=== PATIENT | male | born 1935 | race Caucasian/White ===

== ENCOUNTER 2019-04-03 19:54 | Emergency (ER) | payer MEDICARE, BC ==
--- NOTE | 2019-04-03 21:03 | EDM.PDOC ---
ED HPI GENERAL MEDICAL PROBLEM - General Chief Complaint: General Stated Complaint: FALL Time Seen by Provider: 04/03/19 20:10 Source of Information: Reports: Patient History Limitations: Reports: No Limitations - History of Present Illness INITIAL COMMENTS - FREE TEXT/NARRATIVE: Pt. presents to ER with complaints of chest pain post fall. [place]. [place]. He states that he doesn't believe he hit his head. He denies any head pain. No neck discomfort. No abdominal or pelvic pain. He fell from a standing height. Pt. states that the chest pain is reproducible. Denies any shortness of breath. No nausea or vomiting. Onset: Today Location: Reports: Chest Left Upper Chest Pain Score (Numeric/FACES): 1 - Related Data Allergies Allergy/AdvReac Type Severity Reaction Status Date / Time amoxicillin Allergy Diarrhea Verified 04/03/19 20:17 Home Meds: Home Meds Aspirin [Ecotrin EC] 81 mg PO DAILY 04/03/19 [History] Cholecalciferol (Vitamin D3) [Vitamin D] 5,000 unit PO ASDIRECTED 04/03/19 [ History] Donepezil HCl 1 tab PO BEDTIME 04/03/19 [History] Memantine HCl [Namenda Xr] 28 mg PO DAILY 04/03/19 [History] [place]-3/DHA/Epa/Fish Oil [[place] 3 500 Softgel] 1 each PO ASDIRECTED 04/03/19 [ History] Omeprazole 1 tab PO ASDIRECTED 04/03/19 [History] Sertraline HCl 1 tab PO BEDTIME 04/03/19 [History] Tadalafil [Cialis] 10 - 20 mg PO ASDIRECTED PRN 04/03/19 [History] Ubidecarenone [Co Q10] 60 mg PO ASDIRECTED 04/03/19 [History] atorvaSTATin [Lipitor] 40 mg PO BEDTIME 04/03/19 [History] buPROPion [Wellbutrin SR] 1 tab PO DAILY 04/03/19 [History] Past Medical History Cardiovascular History: Reports: CAD, High Cholesterol, Hypertension, [place] Respiratory History: Reports: Sleep Apnea, Other (See Below) Other Respiratory History: chronic vasomotor rhinitis Gastrointestinal History: Reports: Colon Polyp, GERD Genitourinary History: Reports: Other (See Below) Other Genitourinary History: ED Musculoskeletal History: Reports: Arthritis Psychiatric History: Reports: Depression Social & Family History - Tobacco Use Smoking Status *Q: Never Smoker ED ROS GENERAL - Review of Systems Review Of Systems: See Below Constitutional: Reports: No Symptoms HEENT: Reports: No Symptoms Respiratory: Reports: Pleuritic Chest Pain. Denies: Shortness of Breath, Wheezing, Cough Cardiovascular: Reports: Chest Pain. Denies: Lightheadedness Endocrine: Reports: No Symptoms GI/Abdominal: Reports: No Symptoms : Reports: No Symptoms Musculoskeletal: Reports: No Symptoms Skin: Reports: No Symptoms Neurological: Reports: No Symptoms Psychiatric: Reports: No Symptoms Hematologic/Lymphatic: Reports: No Symptoms Immunologic: Reports: No Symptoms ED EXAM, GENERAL - Physical Exam Exam: See Below Exam Limited By: No Limitations General Appearance: Alert, WD/WN, No Apparent Distress Head: Atraumatic, Normocephalic Neck: Normal Inspection, Supple, Non-Tender, Full Range of Motion Respiratory/Chest: No Respiratory Distress, Lungs Clear, Normal Breath Sounds, No Accessory Muscle Use, Other (L anterior chest pain, no crepitus or deformity noted.) Cardiovascular: Normal Peripheral Pulses, Regular Rate, Rhythm, No Edema, No Gallop, No JVD, No Murmur, No Rub GI/Abdominal: Normal Bowel Sounds, Soft, Non-Tender, No Organomegaly, No Distention, No Abnormal Bruit, No Mass (Male) Exam: Deferred Rectal (Males) Exam: Deferred Back Exam: Normal Inspection, Full Range of Motion Extremities: Normal Inspection, Normal Range of Motion, Non-Tender, No Pedal Edema, Normal Capillary Refill Neurological: Alert, Oriented, CN II-XII Intact, Normal Cognition, Normal Gait, Normal Reflexes, No Motor/Sensory Deficits Psychiatric: Normal Affect, Normal Mood Skin Exam: Warm, Dry, Intact, Normal Color, No Rash Lymphatic: No Adenopathy Course - Vital Signs Last Recorded V/S: Last Vital Signs Temp 36.2 C 04/03/19 20:07 Pulse 64 04/03/19 20:07 Resp 18 04/03/19 20:07 BP 132/80 04/03/19 20:07 Pulse Ox 95 04/03/19 20:07 - Orders/Labs/Meds Orders: Active Orders 24 hr Category Date Time Status Chest 2V [CR] Stat Exams 10/15/19 20:14 Taken - Radiology Interpretation Free Text/Narrative:: chest x-ray negative for acute pathology Departure - Departure Time of Disposition: 21:05 Disposition: Home, Self-Care 01 Clinical Impression: Chest wall contusion - Discharge Information Instructions: Chest Contusion, Adult, [id number] Referrals: Hank Yu PA-C [Primary Care Provider] - Forms: ED Department Discharge Additional Instructions: Home to rest. Recheck in clinic in 7-10 days Return to ER if worsening discomfort, increased shortness of breath, or lightheadedness. - My Orders Last 24 Hours: My Active Orders 04/03/19 20:14 Chest 2V [CR] Stat - Assessment/Plan Last 24 Hours: My Active Orders 04/03/19 20:14 Chest 2V [CR] Stat Plan: Home to rest. Recheck in clinic in 7-10 days Return to ER if worsening discomfort, increased shortness of breath, or lightheadedness.
--- NOTE | 2019-04-04 08:05 | CR ---
[id number] RAD/RAD Chest PA And Lateral EXAM: FRONTAL AND LATERAL CHEST INDICATION: Fall with left anterior chest pain. COMPARISON: None. DISCUSSION: Mild subsegmental atelectasis in the lung bases. The lungs are otherwise clear. Normal heart size. Prior sternotomy. Mild age-indeterminate upper thoracic compression fracture. A right fourth rib fracture appears likely chronic. IMPRESSION: 1. No acute cardiopulmonary findings. Armond Cruz MD 04/04/19 0804 Thank you for allowing us to participate in the care of your patient.
== END 2019-04-03 21:05 | disposition home or self-care (01) ==
LOC: VM.ED 19:54
DX: S20.212A Contusion of left front wall of thorax, initial encounter (principal); I25.2 Old myocardial infarction; I25.10 Atherosclerotic heart disease of native coronary artery without angina pectoris; I10 Essential (primary) hypertension; E78.00 Pure hypercholesterolemia, unspecified; F32.9 Major depressive disorder, single episode, unspecified; K21.9 Gastro-esophageal reflux disease without esophagitis; Z79.82 Long term (current) use of aspirin; Z79.899 Other long term (current) drug therapy; Z88.0 Allergy status to penicillin; W19.XXXA Unspecified fall, initial encounter; Y93.01 Activity, walking, marching and hiking; Y92.89 Other specified places as the place of occurrence of the external cause
CPT/HCPCS: 71046; 99283-25; 99284-GF

== ENCOUNTER 2020-05-13 18:39 | Emergency (ER) | payer MEDICARE, BC ==
[2020-05-13] MEDS ORDERED: Sodium Chloride 0.9% 10 ML Syringe FLUSH PRN (18:48)
--- NOTE | 2020-05-13 19:05 | EDM.PDOC ---
ED HPI GENERAL MEDICAL PROBLEM - General Chief Complaint: General Time Seen by Provider: 05/13/20 19:05 Source of Information: Reports: EMS - History of Present Illness INITIAL COMMENTS - FREE TEXT/NARRATIVE: Mihir is an 84 y/o male who is brought to the ER by EMS after the staff at [facility] called this patient had an episode of shaking while he was sitting at the table bout 4 pm. He then was noted to have a fever of 100.3. He has a history of dementia and was diagnosed with COVID on 05/07/2020. Apparently about 6 pm his called the nurse and thought he was having a "seizure", but no seziure activity witnessed by RN or EMS. - Related Data Allergies Allergy/AdvReac Type Severity Reaction Status Date / Time amoxicillin Allergy Diarrhea Verified 05/13/20 19:16 Home Meds: Home Meds Aspirin [Ecotrin EC] 81 mg PO DAILY 04/03/19 [History] Donepezil HCl 10 mg PO BEDTIME 04/03/19 [History] Memantine HCl [Namenda Xr] 28 mg PO DAILY 04/03/19 [History] Omeprazole 20 mg PO ASDIRECTED 04/03/19 [History] Sertraline HCl 50 tab PO BEDTIME 04/03/19 [History] atorvaSTATin [Lipitor] 40 mg PO BEDTIME 04/03/19 [History] Acetaminophen 325 mg PO Q4H PRN 05/13/20 [History] Albuterol Sulfate [Albuterol Sulfate Hfa] 2 inh IH ASDIRECTED 30 Days #18 hfa.[email or web address] 05/13/20 [Rx] Cholecalciferol (Vitamin D3) [Vitamin D3] 2,000 unit PO DAILY 05/13/20 [History] Docusate Sodium/Sennosides [Senna Plus] 1 tab PO BID 05/13/20 [History] Furosemide [Lasix] 20 mg PO DAILY 05/13/20 [History] QUEtiapine [SEROquel] 50 mg PO DAILY 05/13/20 [History] amLODIPine [Norvasc] 2.5 mg PO DAILY 05/13/20 [History] Past Medical History Cardiovascular History: Reports: CAD, High Cholesterol, Hypertension, [place] Respiratory History: Reports: Sleep Apnea, Other (See Below) Other Respiratory History: chronic vasomotor rhinitis Gastrointestinal History: Reports: Colon Polyp, GERD Genitourinary History: Reports: Other (See Below) Other Genitourinary History: ED Musculoskeletal History: Reports: Arthritis Psychiatric History: Reports: Depression Review of Systems - Review of Systems Review Of Systems: Unable To Obtain Reason Not Obtained: Due to patient condition ED EXAM, GENERAL - Physical Exam Exam: See Below General Appearance: Alert, WD/WN (Elderly male.), No Apparent Distress, Other (Does not offer any response to questions.) Eye Exam: Bilateral Eye: PERRL Ears: Normal External Exam, Normal Canal, Normal TMs Nose: Normal Inspection, Normal Mucosa Throat/Mouth: No Airway Compromise, Other (Tongue slightly dry) Head: Atraumatic, Normocephalic Neck: Supple Respiratory/Chest: No Respiratory Distress, Decreased Breath Sounds Cardiovascular: Regular Rate, Rhythm GI/Abdominal: Normal Bowel Sounds, Soft (Male) Exam: Deferred Rectal (Males) Exam: Deferred Back Exam: Normal Inspection Extremities: Normal Inspection, Normal Capillary Refill Neurological: Alert (Does not offer any response, but eyes open) Skin Exam: Warm, Dry, Intact, Normal Color Lymphatic: No Adenopathy Course - Vital Signs Text/Narrative:: 1904 The patient was seen by the [facility] [employer] [facility]. Labs, EKG, and CXR ordered. 2030 D-Dimer elevated at 0.096, CTA ordered to exclude clot. Vitals stable, patient afebrile and BP WNL. IV bolus done infusing. 2219 CTA reviwed. No PE noted. Vitals have been stable here in the ER. Patient has been afebrile and sats in lower 90s on room air. Called patient's and discussed with her the results. Will plan to discharge him back to [facility]. He has viral pneumonia presentation, but labs and vitals are stable. Will start him on an Albuterol inhaler with a spacer. Discharge instructions were given and he left the ER in stable condition with assisted living staff. Last Recorded V/S: Last Vital Signs Temp 36.5 C 05/13/20 20:22 Pulse 62 05/13/20 20:46 Resp 16 05/13/20 20:46 BP 122/65 05/13/20 20:46 Pulse Ox 92 L 05/13/20 20:46 - Orders/Labs/Meds Orders: Active Orders 24 hr Category Date Time Status CULTURE BLOOD [BC] Stat Lab 05/13/20 19:17 Results CULTURE BLOOD [BC] Stat Lab 05/13/20 19:21 Received Blood Culture x2 Reflex Set [OM.PC] Stat Oth 05/13/20 18:48 Ordered Saline Lock Insert [OM.PC] Stat Oth 05/13/20 18:48 Ordered Labs: Laboratory Tests 05/13/20 05/13/20 05/13/20 Range/Units 18:48 19:17 19:17 WBC 3.1 L (4.0-10.0) x10^3/uL RBC 3.46 L (4.5-6.0) x10^6/uL Hgb 12.0 L (14.0-18.0) g/dL Hct 35.6 L (40.0-52.0) % MCV 102.9 H (78.0-93.0) fL MCH 34.7 H (26.0-32.0) pg MCHC 33.7 (32.0-36.0) g/dL RDW Coeff of [place] 12.1 (10.0-15.0) % Plt Count 83 L (130-400) x10^3/uL Neut % (Auto) 70.5 (50.0-80.0) % Lymph % (Auto) 16.4 L (25.0-50.0) % Branch % (Auto) 13.1 H (2.0-11.0) % Eos % (Auto) 0.0 (0.0-4.0) % Baso % (Auto) 0.0 L (0.2-1.2) % PT 11.9 (9.5-12.3) SEC INR 1.1 L (2.0-3.5) APTT 32.5 (25.6-32.8) SEC D-Dimer, Quantitative 0.96 H (<=0.58) mg/LFEU Sodium (136-145) mmol/L Potassium (3.5-5.1) mmol/L Chloride (98-107) mmol/L Carbon Dioxide (21-32) mmol/L Anion Gap (10-20) mmol/L BUN (7-18) mg/dL Creatinine (0.70-1.30) mg/dL Est Cr Clr Drug Dosing Estimated GFR (MDRD) Glucose (74-106) mg/dL Lactic Acid (0.4-2.0) mmol/L Calcium (8.5-10.1) mg/dL Corrected Calcium (8.5-10.1) mg/dL Magnesium (1.8-2.4) mg/dL Ferritin (26-388) ng/mL Total Bilirubin (0.2-1.0) mg/dL AST (15-37) U/L ALT (16-63) U/L Alkaline Phosphatase (46-116) U/L Troponin I (<=0.056) ng/mL Total Protein (6.4-8.2) g/dL Albumin (3.4-5.0) g/dL Globulin Albumin/Globulin Ratio Urine Color Yellow (YELLOW) Urine Appearance Clear (CLEAR) Urine pH 6.0 (5.0-8.0) Ur Specific [place] 1.020 Urine Protein Negative (NEGATIVE) mg/dL Urine Glucose (UA) Negative (NEGATIVE) mg/dL Urine Ketones Negative (NEGATIVE) mg/dL Urine Occult Blood Negative (NEGATIVE) Urine Nitrite Negative (NEGATIVE) Urine Bilirubin Negative (NEGATIVE) Urine Urobilinogen 0.2 (0.2) EU/dL Ur Leukocyte Esterase Negative (NEGATIVE) 05/13/20 05/13/20 05/13/20 Range/Units 19:17 19:17 19:17 WBC (4.0-10.0) x10^3/uL RBC (4.5-6.0) x10^6/uL Hgb (14.0-18.0) g/dL Hct (40.0-52.0) % MCV (78.0-93.0) fL MCH (26.0-32.0) pg MCHC (32.0-36.0) g/dL RDW Coeff of [place] (10.0-15.0) % Plt Count (130-400) x10^3/uL Neut % (Auto) (50.0-80.0) % Lymph % (Auto) (25.0-50.0) % Branch % (Auto) (2.0-11.0) % Eos % (Auto) (0.0-4.0) % Baso % (Auto) (0.2-1.2) % PT (9.5-12.3) SEC INR (2.0-3.5) APTT (25.6-32.8) SEC D-Dimer, Quantitative (<=0.58) mg/LFEU Sodium 140 (136-145) mmol/L Potassium 3.8 (3.5-5.1) mmol/L Chloride 105 (98-107) mmol/L Carbon Dioxide 27 (21-32) mmol/L Anion Gap 11.8 (10-20) mmol/L BUN 24 H (7-18) mg/dL Creatinine 1.4 H (0.70-1.30) mg/dL Est Cr Clr Drug Dosing TNP Estimated GFR (MDRD) 48 Glucose 111 H (74-106) mg/dL Lactic Acid 1.4 (0.4-2.0) mmol/L Calcium 7.6 L (8.5-10.1) mg/dL Corrected Calcium 8.32 L (8.5-10.1) mg/dL Magnesium 1.7 L (1.8-2.4) mg/dL Ferritin 402 H (26-388) ng/mL Total Bilirubin 0.6 (0.2-1.0) mg/dL AST 36 (15-37) U/L ALT 22 (16-63) U/L Alkaline Phosphatase 83 (46-116) U/L Troponin I 0.035 (<=0.056) ng/mL Total Protein 6.6 (6.4-8.2) g/dL Albumin 3.1 L (3.4-5.0) g/dL Globulin 3.5 Albumin/Globulin Ratio 0.89 Urine Color (YELLOW) Urine Appearance (CLEAR) Urine pH (5.0-8.0) Ur Specific [place] Urine Protein (NEGATIVE) mg/dL Urine Glucose (UA) (NEGATIVE) mg/dL Urine Ketones (NEGATIVE) mg/dL Urine Occult Blood (NEGATIVE) Urine Nitrite (NEGATIVE) Urine Bilirubin (NEGATIVE) Urine Urobilinogen (0.2) EU/dL Ur Leukocyte Esterase (NEGATIVE) Meds: Medications Discontinued Medications Generic Name Dose Route Start Last Admin Trade Name Freq PRN Reason Stop Dose Admin Sodium Chloride 1,000 mls @ 999 mls/hr 05/13/20 19:19 05/13/20 18:45 Normal Saline IV 05/13/20 20:19 999 mls/hr ONETIME ONE Administration Iopamidol 100 ml 05/13/20 23:38 05/13/20 23:38 Isovue-300 (61%) IVPUSH 05/13/20 23:39 100 ml ONETIME ONE Administration Sodium Chloride 10 ml 05/13/20 18:48 Saline Flush FLUSH ASDIRECTED PRN Keep Vein Open - Radiology Interpretation Free Text/Narrative:: XR Chest 1V=early lower lobe infiltrates CTA=no pulmonary embolus, bilateral consolidations Departure - Departure Time of Disposition: 22:25 Disposition: Home, W Home Health Agency 06 Condition: Good Clinical Impression: Viral pneumonia, COVID-19, Dehydration - Discharge Information Prescriptions: Albuterol Sulfate [Albuterol Sulfate Hfa] 2 inh IH ASDIRECTED 30 Days #18 hfa.aer.ad Instructions: COVID-19 Frequently Asked Questions, COVID-19, Dehydration, Elderly, [id number] Referrals: Hank Yu PA-C [Primary Care Provider] - Forms: ED Department Discharge Additional Instructions: -Push fluids. Patient was given a liter of Normal Saline here in the ER. -Labs were normal. -Vitals were stable here in the ER and patient could maintain his oxygen levels on room air. -Albuterol HFA inhaler 2 puffs every 4 hours while awake. #18gm. (Rx) -Continue your chronic meds as prescribed -Follow up with your primary provider if you have further concerns or return to the ER. - My Orders Last 24 Hours: My Active Orders 05/13/20 18:48 Blood Culture x2 Reflex Set [OM.PC] Stat Saline Lock Insert [OM.PC] Stat 05/13/20 19:17 CULTURE BLOOD [BC] Stat 05/13/20 19:21 CULTURE BLOOD [BC] Stat - Assessment/Plan Last 24 Hours: My Active Orders 05/13/20 18:48 Blood Culture x2 Reflex Set [OM.PC] Stat Saline Lock Insert [OM.PC] Stat 05/13/20 19:17 CULTURE BLOOD [BC] Stat 05/13/20 19:21 CULTURE BLOOD [BC] Stat Assessment:: 1)COVID+ 2)Viral Pneumonia 3)Dehydration Plan: -Return to Assisted Living center -Albuterol HFA inhaler Rx -Resume home meds
[2020-05-13] MEDS ORDERED: Sodium Chloride 0.9% 1,000 ML IV ONE (19:19)
--- NOTE | 2020-05-13 19:47 | CR ---
[id number] RAD/RAD Chest Portable EXAM: PORTABLE CHEST RADIOGRAPH. INDICATION: VIRAL INFECTION HYPOXEMIA FEVER COMPARISON: CORRELATION IS MADE WITH APRIL 03, 2019 FINDINGS: Early infiltrates are seen at both lung bases The cardiac silhouette is stable IMPRESSION: EARLY BIBASILAR PNEUMONIA Ryan Bocanegra MD 05/13/20 1946 Thank you for allowing us to participate in the care of your patient.
[2020-05-13 20:06] LABS: CHLORIDE,CL 105 mmol/L (98-107); SODIUM,NA 140 mmol/L (136-145)
[2020-05-13 20:08] LABS: PTT,PARTIAL THROMBOPLSTIN TIME 32.5 SEC (25.6-32.8)
[2020-05-13 20:15] LABS: ANION GAP 11.8 mmol/L (10-20)
[2020-05-13] MEDS ORDERED: Iopamidol 612 MG/ML 100 ML Bottle IVPUSH ONE (23:38)
--- NOTE | 2020-05-14 07:57 | CT ---
[id number] CT/CTA Chest Exam: CTA Chest Clinical Data: VIRAL INFECTION POSITIVE D-DIMER COMPARISON: CORRELATION IS MADE WITH TODAY'S CHEST RADIOGRAPH FINDINGS: Bilateral infiltrates are seen. There are no pulmonary emboli There is no mediastinal mass or adenopathy IMPRESSION: BILATERAL PNEUMONIA NO PULMONARY EMBOLI Ryan Bocanegra MD 05/14/20 0756 Thank you for allowing us to participate in the care of your patient.
== END 2020-05-13 23:15 | disposition home health service (06) ==
LOC: VM.ED 18:39
DX: U07.1 COVID-19 (principal); J12.89 Other viral pneumonia; E86.0 Dehydration; I10 Essential (primary) hypertension; E78.00 Pure hypercholesterolemia, unspecified; I25.10 Atherosclerotic heart disease of native coronary artery without angina pectoris; I25.2 Old myocardial infarction; M19.90 Unspecified osteoarthritis, unspecified site; F32.9 Major depressive disorder, single episode, unspecified; Z79.82 Long term (current) use of aspirin; Z79.899 Other long term (current) drug therapy; Z88.1 Allergy status to other antibiotic agents
CPT/HCPCS: 36415; 71045; 71275; 80053; 81003; 82728; 83605; 83735; 84484; 85025; 85379; 85610; 85730; 87040; 93005; 99284; 99285; J7030; Q9967

== ENCOUNTER 2020-05-20 09:52 | Inpatient (IN) | payer MEDICARE, BC ==
[2020-05-20] MEDS ORDERED: Lactated Ringers 1,000 ML IV SCH (10:00)
[2020-05-20] MEDS ORDERED: Albuterol/Ipratropium 3.0-0.5 MG/3 ML Neb Soln NEB ONE (10:05)
--- NOTE | 2020-05-20 10:15 | EDM.PDOC ---
ED HPI GENERAL MEDICAL PROBLEM - General Chief Complaint: General Stated Complaint: ER Time Seen by Provider: 05/20/20 10:00 Source of Information: Reports: Patient, EMS, EMS Notes Reviewed, Care Home Records (Assisted living), RN, RN Notes Reviewed History Limitations: Reports: Physical Impairment (severe weakness) - History of Present Illness INITIAL COMMENTS - FREE TEXT/NARRATIVE: Patient is a 84 year old male from local Assisted Living facility. Patient presents with c/o severe weakness, dehydration, and Covid pneumonia. Patient tested positive for COVID on 05/07/20. Assisted Living states he is off quarantine today, also reports he is a DNR. Assisted living reports the patient was ambulating with assist yesterday, today has difficulty sitting up with assist. Patient denies any pain. Denies N/V/D. Admits to SOB. Denies chest pains. Patient is A&O x3, although slow to respond. Onset: Gradual - Related Data Allergies Allergy/AdvReac Type Severity Reaction Status Date / Time amoxicillin Allergy Diarrhea Verified 05/20/20 10:03 Home Meds: Home Meds Aspirin [Ecotrin EC] 81 mg PO DAILY 04/03/19 [History] Donepezil HCl 10 mg PO BEDTIME 04/03/19 [History] Memantine HCl [Namenda Xr] 28 mg PO DAILY 04/03/19 [History] Omeprazole 20 mg PO ASDIRECTED 04/03/19 [History] Sertraline HCl 50 tab PO BEDTIME 04/03/19 [History] atorvaSTATin [Lipitor] 40 mg PO BEDTIME 04/03/19 [History] Acetaminophen 325 mg PO Q4H PRN 05/13/20 [History] Albuterol Sulfate [Albuterol Sulfate Hfa] 2 inh IH ASDIRECTED 30 Days #18 [email or web address] 05/13/20 [Rx] Cholecalciferol (Vitamin D3) [Vitamin D3] 2,000 unit PO DAILY 05/13/20 [History] Docusate Sodium/Sennosides [Senna Plus] 1 tab PO BID 05/13/20 [History] Furosemide [Lasix] 20 mg PO DAILY 05/13/20 [History] QUEtiapine [SEROquel] 50 mg PO DAILY 05/13/20 [History] amLODIPine [Norvasc] 2.5 mg PO DAILY 05/13/20 [History] Past Medical History Cardiovascular History: Reports: CAD, High Cholesterol, Hypertension, AR Respiratory History: Reports: Sleep Apnea, Other (See Below) Other Respiratory History: chronic vasomotor rhinitis Gastrointestinal History: Reports: Colon Polyp, GERD Genitourinary History: Reports: Other (See Below) Other Genitourinary History: ED Musculoskeletal History: Reports: Arthritis Psychiatric History: Reports: Depression ED ROS GENERAL - Review of Systems Review Of Systems: Comprehensive ROS is negative, except as noted in HPI. ED EXAM, GENERAL - Physical Exam Exam: See Below Exam Limited By: No Limitations General Appearance: Alert, WD/WN, Mild Distress Eye Exam: Bilateral Eye: EOMI, Normal Inspection Ears: Normal External Exam, Hearing Grossly Normal Nose: Normal Inspection Throat/Mouth: Normal Inspection, Normal Lips, Normal Teeth, Normal Gums, Normal Oropharynx, Normal Voice, No Airway Compromise Head: Atraumatic, Normocephalic Neck: Normal Inspection Respiratory/Chest: Respiratory Distress, Decreased Breath Sounds, Crackles (throughour), Rhonchi, Wheezing Cardiovascular: Normal Peripheral Pulses, Regular Rate, Rhythm, No Edema, No Gallop, No JVD, No Murmur, No Rub Peripheral Pulses: 2+: Radial (L), Radial (R), Dorsalis Pedis (L), Dorsalis Pedis (R) GI/Abdominal: Normal Bowel Sounds, Soft, Non-Tender (Male) Exam: Deferred Rectal (Males) Exam: Deferred Back Exam: Normal Inspection, Decreased Range of Motion Extremities: Normal Inspection, Normal Range of Motion, Non-Tender, Normal Capillary Refill, No Pedal Edema Neurological: Alert, Oriented, CN II-XII Intact, Normal Cognition, No Motor/Sensory Deficits, Slow to Respond Psychiatric: Normal Affect, Normal Mood Skin Exam: Warm, Dry, Intact, Normal Color, No Rash Lymphatic: No Adenopathy Course - Vital Signs Last Recorded V/S: Last Vital Signs Temp 98.7 F 05/20/20 10:56 Pulse 78 05/20/20 10:56 Resp 28 H 05/20/20 10:56 BP 130/99 H 05/20/20 10:56 Pulse Ox 94 L 05/20/20 10:56 - Orders/Labs/Meds Orders: Active Orders 24 hr Category Date Time Status Admission Diagnosis [ADT] Stat ADT 05/20/20 11:31 Ordered Patient Status [ADT] Routine ADT 05/20/20 11:31 Active EKG Documentation Completion [RC] STAT Care 05/20/20 09:55 Active Oxygen Therapy, ED [RC] ASDIRECTED Care 05/20/20 11:33 Active RT Aerosol Therapy [RC] ASDIRECTED Care 05/20/20 10:05 Active Regular Diet [DIET] Diet 05/20/20 Dinner Ordered CULTURE BLOOD [BC] Stat Lab 05/20/20 10:22 Received CULTURE BLOOD [BC] Stat Lab 05/20/20 10:28 Received Lactated Ringers [Ringers, Lactated] 1,000 ml Med 05/20/20 10:00 Active IV ASDIRECTED Blood Culture x2 Reflex Set [OM.PC] Stat Oth 05/20/20 09:56 Ordered Medication Orders Lactated Ringer's (Ringers, Lactated) 1,000 mls @ 125 mls/hr IV ASDIRECTED IBAN Last Admin: 05/20/20 10:10 Dose: 125 mls/hr Documented by: CURT Labs: Laboratory Tests 05/20/20 05/20/20 05/20/20 Range/Units 10:22 10:28 10:28 WBC 4.7 (4.0-10.0) x10^3/uL RBC 3.52 L (4.5-6.0) x10^6/uL Hgb 12.1 L (14.0-18.0) g/dL Hct 35.2 L (40.0-52.0) % MCV 100.0 H (78.0-93.0) fL MCH 34.4 H (26.0-32.0) pg MCHC 34.4 (32.0-36.0) g/dL RDW Coeff of [place] 11.5 (10.0-15.0) % Plt Count 160 D (130-400) x10^3/uL Add Manual Diff Yes Neutrophils % (Manual) 89 H (50-80) % Lymphocytes % (Manual) 6 L (25-50) % Monocytes % (Manual) 5 (2-11) % Platelet Estimate Adequate Giant Platelets Few H PT 15.4 H (9.5-12.3) SEC INR 1.4 L (2.0-3.5) Sodium 141 (136-145) mmol/L Potassium 3.6 (3.5-5.1) mmol/L Chloride 105 (98-107) mmol/L Carbon Dioxide 26 (21-32) mmol/L Anion Gap 13.6 (10-20) mmol/L BUN 26 H (7-18) mg/dL Creatinine 1.0 (0.70-1.30) mg/dL Est Cr Clr Drug Dosing TNP Estimated GFR (MDRD) > 60 Glucose 103 (74-106) mg/dL Lactic Acid (0.4-2.0) mmol/L Calcium 8.5 (8.5-10.1) mg/dL Corrected Calcium 9.78 (8.5-10.1) mg/dL Total Bilirubin 1.1 H (0.2-1.0) mg/dL AST 56 H (15-37) U/L ALT 26 (16-63) U/L Alkaline Phosphatase 82 (46-116) U/L Troponin I 0.031 (<=0.056) ng/mL C-Reactive Protein 20.1 H (<=0.9) mg/dL NT-Pro-B Natriuret Pep (<=450) pg/mL Total Protein 7.0 (6.4-8.2) g/dL Albumin 2.4 L (3.4-5.0) g/dL Globulin 4.6 Albumin/Globulin Ratio 0.52 Urine Color (YELLOW) Urine Appearance (CLEAR) Urine pH (5.0-8.0) Ur Specific [place] Urine Protein (NEGATIVE) mg/dL Urine Glucose (UA) (NEGATIVE) mg/dL Urine Ketones (NEGATIVE) mg/dL Urine Occult Blood (NEGATIVE) Urine Nitrite (NEGATIVE) Urine Bilirubin (NEGATIVE) Urine Urobilinogen (0.2) EU/dL Ur Leukocyte Esterase (NEGATIVE) Urine RBC (NOT SEEN) /HPF Urine WBC (NOT SEEN) /HPF Ur Squamous Epith Cells (NEGATIVE) /HPF Amorphous Sediment Urine Bacteria (NEGATIVE) /HPF Urine Mucus (NEGATIVE) /LPF 05/20/20 05/20/20 05/20/20 Range/Units 10:28 10:28 10:37 WBC (4.0-10.0) x10^3/uL RBC (4.5-6.0) x10^6/uL Hgb (14.0-18.0) g/dL Hct (40.0-52.0) % MCV (78.0-93.0) fL MCH (26.0-32.0) pg MCHC (32.0-36.0) g/dL RDW Coeff of [place] (10.0-15.0) % Plt Count (130-400) x10^3/uL Add Manual Diff Neutrophils % (Manual) (50-80) % Lymphocytes % (Manual) (25-50) % Monocytes % (Manual) (2-11) % Platelet Estimate Giant Platelets PT (9.5-12.3) SEC INR (2.0-3.5) Sodium (136-145) mmol/L Potassium (3.5-5.1) mmol/L Chloride (98-107) mmol/L Carbon Dioxide (21-32) mmol/L Anion Gap (10-20) mmol/L BUN (7-18) mg/dL Creatinine (0.70-1.30) mg/dL Est Cr Clr Drug Dosing Estimated GFR (MDRD) Glucose (74-106) mg/dL Lactic Acid 1.7 (0.4-2.0) mmol/L Calcium (8.5-10.1) mg/dL Corrected Calcium (8.5-10.1) mg/dL Total Bilirubin (0.2-1.0) mg/dL AST (15-37) U/L ALT (16-63) U/L Alkaline Phosphatase (46-116) U/L Troponin I (<=0.056) ng/mL C-Reactive Protein (<=0.9) mg/dL NT-Pro-B Natriuret Pep 547 H (<=450) pg/mL Total Protein (6.4-8.2) g/dL Albumin (3.4-5.0) g/dL Globulin Albumin/Globulin Ratio Urine Color Dark yellow H (YELLOW) Urine Appearance Cloudy H (CLEAR) Urine pH 6.0 (5.0-8.0) Ur Specific [place] 1.020 Urine Protein 100 H (NEGATIVE) mg/dL Urine Glucose (UA) Negative (NEGATIVE) mg/dL Urine Ketones Trace H (NEGATIVE) mg/dL Urine Occult Blood Moderate H (NEGATIVE) Urine Nitrite Negative (NEGATIVE) Urine Bilirubin Small H (NEGATIVE) Urine Urobilinogen 0.2 (0.2) EU/dL Ur Leukocyte Esterase Negative (NEGATIVE) Urine RBC 10-20 H (NOT SEEN) /HPF Urine WBC 0-5 (NOT SEEN) /HPF Ur Squamous Epith Cells Not seen (NEGATIVE) /HPF Amorphous Sediment Few Urine Bacteria Many H (NEGATIVE) /HPF Urine Mucus Rare H (NEGATIVE) /LPF Meds: Medications Generic Name Dose Route Start Last Admin Trade Name Freq PRN Reason Stop Dose Admin Lactated Ringer's 1,000 mls @ 125 mls/hr 05/20/20 10:00 05/20/20 10:10 Ringers, Lactated IV 125 mls/hr ASDIRECTED IBAN Administration Discontinued Medications Generic Name Dose Route Start Last Admin Trade Name Freq PRN Reason Stop Dose Admin Albuterol/Ipratropium 3 ml 05/20/20 10:05 05/20/20 10:18 Duoneb 3.0-0.5 Mg/3 Ml NEB 05/20/20 10:06 3 ml ONETIME ONE Administration Ceftriaxone Sodium 1 gm 05/20/20 11:30 05/20/20 11:37 Rocephin IVPUSH 05/20/20 11:31 1 gm STAT ONE Administration Dexamethasone 6 mg 05/20/20 11:29 05/20/20 11:43 Decadron IVPUSH 05/20/20 11:30 6 mg ONETIME ONE Administration - Radiology Interpretation Free Text/Narrative:: Chest xray: Progression of parenchymal opacities compared to the prior examination. Findings are most consistent with pneumonia, including sequela of COVID 19. See rad report - Re-Assessments/Exams Free Text/Narrative Re-Assessment/Exam: 05/20/20 11:49 Discussed patient case with Dr. Shi Villafana who agreed to accept the patient for acute admission. Departure - Departure Time of Disposition: 11:50 Disposition: Admitted As Inpatient 65 Condition: Poor Clinical Impression: Hypoxia, Weakness, COVID-19 Pneumonia Qualifiers: Pneumonia type: due to unspecified organism Laterality: bilateral Lung location: lower lobe of lung Qualified Code(s): J18.9 - Pneumonia, unspecified organism Dementia Qualifiers: Dementia type: Alzheimer's disease Alzheimer's disease onset: unspecified onset Dementia behavioral disturbance: without behavioral disturbance Qualified C ode(s): G30.9 - Alzheimer's disease, unspecified; F02.80 - Dementia in other diseases classified elsewhere without behavioral disturbance - Discharge Information *PRESCRIPTION DRUG MONITORING PROGRAM REVIEWED*: No *COPY OF PRESCRIPTION DRUG MONITORING REPORT IN PATIENT YESI: No Forms: ED Department Discharge Sepsis Event Note (ED) - Evaluation Sepsis Screening Result: No Definite Risk - Focused Exam Vital Signs: Vital Signs Temp Pulse Resp BP Pulse Ox 05/20/20 10:56 98.7 F 78 28 H 130/99 H 94 L 05/20/20 09:53 98.5 F 75 20 129/76 92 L - My Orders Last 24 Hours: My Active Orders 05/20/20 09:55 EKG Documentation Completion [RC] STAT 05/20/20 09:56 Blood Culture x2 Reflex Set [OM.PC] Stat 05/20/20 10:00 Lactated Ringers [Ringers, Lactated] 1,000 ml IV ASDIRECTED 05/20/20 10:05 RT Aerosol Therapy [RC] ASDIRECTED 05/20/20 10:22 CULTURE BLOOD [BC] Stat 05/20/20 10:28 CULTURE BLOOD [BC] Stat 05/20/20 11:31 Admission Diagnosis [ADT] Stat Patient Status [ADT] Routine 05/20/20 11:33 Oxygen Therapy, ED [RC] ASDIRECTED 05/20/20 Dinner Regular Diet [DIET] - Assessment/Plan Last 24 Hours: My Active Orders 05/20/20 09:55 EKG Documentation Completion [RC] STAT 05/20/20 09:56 Blood Culture x2 Reflex Set [OM.PC] Stat 05/20/20 10:00 Lactated Ringers [Ringers, Lactated] 1,000 ml IV ASDIRECTED 05/20/20 10:05 RT Aerosol Therapy [RC] ASDIRECTED 05/20/20 10:22 CULTURE BLOOD [BC] Stat 05/20/20 10:28 CULTURE BLOOD [BC] Stat 05/20/20 11:31 Admission Diagnosis [ADT] Stat Patient Status [ADT] Routine 05/20/20 11:33 Oxygen Therapy, ED [RC] ASDIRECTED 05/20/20 Dinner Regular Diet [DIET]
[2020-05-20 11:07] LABS: ANION GAP 13.6 mmol/L (10-20); CHLORIDE,CL 105 mmol/L (98-107); SODIUM,NA 141 mmol/L (136-145)
[2020-05-20] MEDS ORDERED: Dexamethasone 4 MG/ML SDV IVPUSH ONE (11:29)
[2020-05-20] MEDS ORDERED: cefTRIAXone 1 GM Vial IVPUSH ONE (11:30)
--- NOTE | 2020-05-20 11:41 | CR ---
[id number] RAD/RAD Chest PA or AP 1V EXAM: RAD Chest PA or AP 1V INDICATION: CHEST PAIN. COMPARISON: CT and radiograph examinations from 05/13/2020. DISCUSSION: Increased parenchymal opacification in both lungs compared to the prior examination. Findings are more prominent on the right extending into the upper lobe. No pleural effusion or pneumothorax. IMPRESSION: Progression of parenchymal opacities compared the prior examination. Findings are most consistent with pneumonia, including sequela of COVID 19. Kadeem Cruz MD 05/20/20 1141 Thank you for allowing us to participate in the care of your patient.
[2020-05-20] MEDS ORDERED: Azithromycin 250 MG Tab PO ONE (13:13)
[2020-05-20] MEDS ORDERED: Acetaminophen 325 MG Tab PO PRN (13:13)
[2020-05-20] MEDS ORDERED: Albuterol 0.083% 2.5 MG/3 ML Neb Soln NEB PRN (13:13)
[2020-05-20] MEDS ORDERED: Albuterol HFA 18 Gm Inhaler INH PRN (13:52)
[2020-05-20] MEDS: Zinc (Zinc Gluconate) 50 MG Tab PO SCH (14:21)
[2020-05-20] MEDS: Ascorbic Acid 500 MG Tab PO SCH ×2 (14:21→19:48)
[2020-05-20] MEDS: Azithromycin 500 MG in Sodium Chloride 0.9% 250 ML IV SCH (14:49)
[2020-05-20] MEDS: Albuterol HFA 18 Gm Inhaler INH SCH ×3 (14:52→22:21)
--- NOTE | 2020-05-20 18:56 | HP ---
CHIEF COMPLAINT: Weakness and shortness of breath. HISTORY OF PRESENT ILLNESS: This is an 84-year-old with dementia, sent over from assisted living after being COVID positive on the . He was having weakness requiring assistance with ambulation yesterday. Now, they can hardly get him up out of the chair. He was 80% on room air. In the ER, respiratory rate 30s. He is not keeping on oxygen. He is currently not having any fevers. White count was normal, but 89% neutrophils. Chest x-ray shows a pattern potentially of a secondary pneumonia. The patient had been in the ER on the and been evaluated. Had a CT PE protocol at that time. He was 88% on 2 L, was not started on dexamethasone. The patient does not have a history of chronic lung disease. ALLERGIES: Include amoxicillin, causes diarrhea. MEDICATION LIST: Reviewed. The patient previously was on Lasix for a time when in the custodial, but it was stopped. He is on Zoloft 50 mg daily, Lipitor 40 mg at bedtime, Namenda 28 mg daily, Aricept 10 mg at bedtime, amlodipine 2.5 daily, Seroquel 50 mg at bedtime, B12, 1000 mcg daily, Xanax as needed for anxiety, Prilosec daily, aspirin 81 mg daily, coenzyme Q10, and vitamin D daily. PAST MEDICAL HISTORY: Does include the coronary artery disease, depression, erectile dysfunction, essential hypertension, GERD, history of colon polyps, history of skin cancer, mixed dementia with Alzheimer's and vascular , in [facility] placement in 11/2019. He was discharged from the [facility] to live with his at assisted living this fall, hyperlipidemia, and sleep apnea. SURGICAL HISTORY: Includes CABG surgery, biopsy of thyroid. FAMILY HISTORY: Both parents are . His mother had dementia. Father had oral cancer. SOCIAL HISTORY: He is . He lives with his at [facility]. He never smoked. He does not use any alcohol currently. REVIEW OF SYSTEMS: Unobtainable due to the patient's mental cognitive status. However, it should be noted his weight was 72 kg back in February and is reported to be 72 kg today. PHYSICAL EXAMINATION: Vital Signs: Weight 72.5 kg, temperature 98, pulse 68, blood pressure 139/80, respiratory rate 22, and O2 of 92% on 4 L, but 80% on room air. General: He is in no acute distress. He is resting in bed. He did open his eyes and answer questions. When asked where he is from, he said here, but then he did tell me [place]. He also did know that it was May and it was Tuesday or Tuesday. He denied he is in any pain or having any trouble breathing. He did not cough when I was in the room with him. Heart: Regular rate and rhythm. S1, S2 without murmur. Lungs: Sounds are clear to auscultation over the left lung, but decreased lung sounds and crackles over the right lung. Abdomen: Has positive bowel sounds. It is soft, nondistended, nontender. Extremities: Warm and dry. No edema. Mental Status: Again, as stated in HPI that he is aware of the date. He otherwise is not pale. Skin: Warm. LABORATORY WORK: White count 4.7, hemoglobin 12.1, platelets 160, up from 83 on the . INR up to 1.4. D-dimer was not repeated today. Sodium 141, potassium 3.6, chloride 105, bicarb 26, BUN 26, creatinine 1, lactic 1.7, glucose 103, calcium 9.7, bilirubin 1.1, AST 56, ALT 26. Troponin negative. CRP 20.1. ProBNP 547, albumin 2.4. UA, 10-20 rbc's. ASSESSMENT: 1. Coronavirus disease 19 infection, 05/07, but worsening respiratory status. We will start him on dexamethasone 6 mg IV daily and turn it over to oral if he can take that tomorrow. He also likely has a secondary pneumonia, so we started him on intravenous Rocephin and intravenous Zithromax. 2. Dementia, known Alzheimer's and vascular. We will continue his home medications. We will continue to encourage cares. 3. Weakness and deconditioning related to coronavirus disease 19 and pneumonia. We will get PT involved. 4. Community-acquired pneumonia secondary to infection due to coronavirus disease 19. 5. Essential hypertension. We will continue his home medications. 6. Mild anemia. We will continue to monitor. 7. History of coronary artery disease. He is not having any chest pain. PLAN: The patient will continue acute cares with IV steroids, IV antibiotics. We will get PT involved. We will follow his lab work. We will start the vitamins for COVID. Code level 3. MKA: 05/20/2020 17:54:31 MODL: 05/20/2020 18:47:45 /[id number]
[2020-05-20] MEDS ORDERED: Flumazenil 0.1 MG/ML 5 ML MDV IVPUSH PRN (19:33)
[2020-05-20] MEDS: QUEtiapine 25 MG Tab PO SCH (19:47)
[2020-05-20] MEDS: atorvaSTATin 40 MG Tab PO SCH (19:48)
[2020-05-20] MEDS: Donepezil 10 MG Tab PO SCH (19:48)
[2020-05-21] MEDS: Albuterol HFA 18 Gm Inhaler INH SCH ×6 (03:58→22:29)
[2020-05-21 07:44] LABS: CHLORIDE,CL 107 mmol/L (98-107); SODIUM,NA 143 mmol/L (136-145)
[2020-05-21] MEDS ORDERED: Azithromycin 250 MG Tab PO SCH (08:00)
[2020-05-21] MEDS: Enoxaparin 40 MG/0.4 ML Syringe SUBCUT SCH (08:01)
[2020-05-21] MEDS: cefTRIAXone 1 GM Vial IVPUSH SCH (08:01)
[2020-05-21] MEDS: Cholecalciferol (Vitamin D3) 25 MCG Tab PO SCH (08:01)
[2020-05-21] MEDS: Memantine 10 MG Tab PO SCH ×2 (08:02→19:55)
[2020-05-21] MEDS: Ascorbic Acid 500 MG Tab PO SCH ×2 (08:02→19:54)
[2020-05-21] MEDS: Sertraline 50 MG Tab PO SCH (08:02)
[2020-05-21] MEDS: Zinc (Zinc Gluconate) 50 MG Tab PO SCH (08:03)
[2020-05-21] MEDS: amLODIPine 2.5 MG Tab PO SCH (08:03)
[2020-05-21] MEDS: Aspirin 81 MG Tab.EC PO SCH (08:04)
[2020-05-21] MEDS: dexAMETHasone 2 MG, dexAMETHasone 4 MG PO SCH ×2 (08:04)
[2020-05-21] MEDS: Azithromycin 500 MG in Sodium Chloride 0.9% 250 ML IV SCH (08:09)
[2020-05-21] MEDS: LORazepam 2 MG/ML SDV IVPUSH PRN (17:15)
--- NOTE | 2020-05-21 18:31 | PN ---
Progress Note for CLAYTON Blankenship LINDA Date: 05/21/2020 Room #: VM.210 SUBJECTIVE: This is hospital day #2 on an 84-year-old with dementia, admitted for COVID-19 infection with weakness and hypoxia. The patient has been maintaining in the 90% range as long as he is leaving on his 4 L of oxygen. When asked if he was short of breath or having any cough, he said "did you hear me cough." His only concern this morning is that he wet his pants. His brief is dry, but his gown is all wet. He otherwise denies any pain. He did get an Ativan order last night, but did not actually receive a dose. He did not eat well for supper, but did take his pills from the night nurse, and he has been afebrile. OBJECTIVE: Vital Signs: His temperature is 97.2, pulse 60, blood pressure 101/74, respiratory rate 22, O2 of 91 on 4 L. General: He is in no acute distress. Heart: Regular rate and rhythm. S1, S2 without murmur. Lungs: Sounds show decreased air entry bilaterally with crackles in both bases appreciated. Abdomen: Has positive bowel sounds. It soft, nondistended, nontender. Extremities: Warm and dry. No edema. Mental Status: He is alert. He tells me he is from [place], but would not give me any other answers today. LABORATORY DATA: Lab work does show his white count to have been up to 7, hemoglobin 12.8, platelets 160. Sodium 143, potassium 4, chloride 107, bicarb 27, BUN 32, creatinine 1, glucose 127, calcium 10.2, bilirubin 0.8, AST down to 54, ALT 30, alkaline phosphatase 84. Ferritin is still pending. Albumin 2.3. ASSESSMENT AND PLAN: 1. COVID-19 infection, diagnosed 05/07, now with acute hypoxic respiratory failure. The patient will continue the 6 mg daily of dexamethasone. We will give it IV if he is unable to take oral medications due to behaviors. 2. Pneumonia secondary to the COVID-19 infection. He is on day #2 of IV Rocephin and Zithromax. 3. Dementia with underlying Alzheimer's and vascular dementia. We will continue home medications. 4. Weakness and deconditioning related to the above diagnosis. We will get PT involved. 5. Essential hypertension. Blood pressure is under excellent control. He is on amlodipine low dose 2.5. We will hold it if systolic blood pressures are under 100. 6. Moderate malnutrition. We will encourage a diet. 7. History of coronary artery disease. He is not having any chest pain. 8. Chronic anemia. Hemoglobins are stable. PLAN: The patient will continue acute cares. We will continue IV antibiotics. We will give him oral dexamethasone, but change to IV if he is refusing to take oral medications. We will continue to support him with oxygen. We will continue the vitamins. He has no reported history of chronic lung disease, but does have albuterol inhaler available and did get a dose this morning. Does have Ativan available for agitation; however, he has not received any. He is on his home Zoloft and Seroquel. DVT prophylaxis, he is on Lovenox. MKA: 05/21/2020 08:39:19 MODL: 05/21/2020 09:39:00 /[id number]
[2020-05-21] MEDS: QUEtiapine 25 MG Tab PO SCH (19:54)
[2020-05-21] MEDS: Donepezil 10 MG Tab PO SCH (19:55)
[2020-05-21] MEDS: atorvaSTATin 40 MG Tab PO SCH (19:55)
[2020-05-22] MEDS: Albuterol HFA 18 Gm Inhaler INH SCH ×6 (02:30→23:46)
[2020-05-22] MEDS: LORazepam 2 MG/ML SDV IVPUSH PRN (04:28)
[2020-05-22] MEDS: Omeprazole 20 MG Cap.CR PO SCH (06:43)
[2020-05-22] MEDS: cefTRIAXone 1 GM Vial IVPUSH SCH (08:22)
[2020-05-22] MEDS: Enoxaparin 40 MG/0.4 ML Syringe SUBCUT SCH (08:22)
[2020-05-22] MEDS: Aspirin 81 MG Tab.EC PO SCH (08:23)
[2020-05-22] MEDS: amLODIPine 2.5 MG Tab PO SCH (08:23)
[2020-05-22] MEDS: Cholecalciferol (Vitamin D3) 25 MCG Tab PO SCH (08:23)
[2020-05-22] MEDS: Memantine 10 MG Tab PO SCH ×2 (08:23→23:44)
[2020-05-22] MEDS: Zinc (Zinc Gluconate) 50 MG Tab PO SCH (08:23)
[2020-05-22] MEDS: Ascorbic Acid 500 MG Tab PO SCH ×2 (08:24→23:46)
[2020-05-22] MEDS: dexAMETHasone 2 MG, dexAMETHasone 4 MG PO SCH ×2 (08:24)
[2020-05-22] MEDS: Azithromycin 500 MG in Sodium Chloride 0.9% 250 ML IV SCH (08:24)
[2020-05-22] MEDS: Sertraline 50 MG Tab PO SCH (08:24)
[2020-05-22] MEDS: LORazepam 2 MG/ML SDV IM PRN (13:48)
--- NOTE | 2020-05-22 13:52 | PN ---
Progress Note for CLAYTON Blankenship LINDA Date: 05/22/2020 Room #: VM.210 SUBJECTIVE: This is hospital day #3 on an 84-year-old admitted with a COVID-19 infection. The patient does have strength, but whenever he sits up or stands per PT his O2 sats drop into the 80s. He is on 4 L and otherwise has been in the 90% range. When he sat up, he started coughing more, and his sats indeed did drop to about 85% even with oxygen, although he has been having a difficult time leaving it on. He pulled out his IV. He has had very little to eat. I actually talked to his on the phone. She reports he has been eating poorly even before they moved into the assisted living and he got sick. He denies any pain, but does report some trouble coughing. No shortness of breath. No leg swelling. He did get a dose of Ativan yesterday afternoon and during the night. He got himself up enough to pee in the trash can per the aide, and when they moved him around in bed, he told him he does not need any help from them. OBJECTIVE: Vital Signs: His temperature is 97.5. He has been afebrile. His pulse is 57, respiratory rate 19, and O2 of 94% on 4 L, blood pressure 120/63. General: He is in no acute distress. Heart: Regular rate and rhythm. Lungs: Lung sounds are decreased with crackles bilaterally. Abdomen: Nondistended. Positive bowel sounds. Extremities: Warm and dry. No edema. Mental Status: He did not answer any questions pertaining to orientation for me today. LABORATORY DATA: No lab was done today and is planned for tomorrow, but renal function was normal yesterday. The patient did have a CT PE protocol that was negative on the . The patient's symptoms started from COVID on the . ASSESSMENT AND PLAN: 1. COVID-19 infection. Date of diagnosis 05/07, now with acute hypoxic respiratory failure, worsening with movement. We will repeat his CT PE protocol today. We will continue the oral dexamethasone. 2. Pneumonia with a secondary infection due to COVID-19. Due to pulling out his IV, I will switch him over to oral Ceftin and Zithromax to complete a 5- day course. 3. Dementia with underlying Alzheimer's and vascular dementia. This is complicating his care. We will continue to provide supportive cares and continue home medications. 4. Weakness and deconditioning. He is working with PT. He is a candidate for swing bed. His is aware this is a possibility. She had some concerns since she is still sick at home, about him being able to get into their bed. 5. Essential hypertension. He is on his home medications. 6. Moderate malnutrition. We are encouraging a diet. 7. History of coronary disease. He has not had any chest pain. 8. Chronic anemia. We will check a hemoglobin tomorrow. 9. DVT prophylaxis. He has been on Lovenox. The patient will continue on acute cares. We will switch his medications over to oral due to losing IV access, but we need to get a CT PE protocol today, so likely the IV will need to be replaced for at least that. We will give him Ativan IM if needed for significant agitation unless the IV is in place, then we may use IV. He is also on Zoloft and Seroquel. Likely, he may be stable for swing bed as soon as tomorrow. His mental status is going to limit him most, but we will continue supportive cares. MKA: 05/22/2020 13:12:19 MODL: 05/22/2020 13:39:28 /[id number]
[2020-05-22] MEDS ORDERED: OLANZapine 10 MG Vial IM ONE (15:18)
--- NOTE | 2020-05-22 16:52 | CT ---
[id number] CT/CTA Chest EXAM: CT ANGIOGRAM CHEST INDICATION: HYPOXIA. COMPARISON: May 13, 2020. DISCUSSION: No large or central pulmonary embolus is identified, but respiratory motion limits evaluation for small and peripheral emboli. There are bilateral areas of mixed ground glass opacities, consolidation and septal thickening which have increased relative to the prior study and are most consistent with infection including potential Covid 19. Stable borderline heart size without evidence of congestive heart failure. Stable small to moderate hiatus hernia. Sternotomy. Dense coronary artery calcifications. No adenopathy, pleural or pericardial effusion. Bilateral pleural plaques with calcification are consistent with previous asbestos exposure. 18 mm right thyroid cyst or nodule. Cholelithiasis. Parapelvic cysts versus collecting system dilation the upper pole of the left kidney. Degenerative changes in the spine. Chronic appearing mild T4 compression fracture. IMPRESSION: 1. No large or central pulmonary embolism. Respiratory motion limits sensitivity for small and peripheral emboli. 2. Progressive bilateral groundglass opacities, consolidation and areas of septal thickening most consistent with infection including potential Covid 19. Armond Cruz MD 05/22/20 [id number] Thank you for allowing us to participate in the care of your patient.
[2020-05-22] MEDS: Donepezil 10 MG Tab PO SCH (23:43)
[2020-05-22] MEDS: QUEtiapine 25 MG Tab PO SCH (23:43)
[2020-05-22] MEDS: atorvaSTATin 40 MG Tab PO SCH (23:46)
[2020-05-23] MEDS: LORazepam 2 MG/ML SDV IM PRN ×2 (00:41→20:24)
[2020-05-23] MEDS: Albuterol HFA 18 Gm Inhaler INH SCH ×6 (03:25→23:15)
[2020-05-23 07:08] LABS: CHLORIDE,CL 115 mmol/L (98-107); SODIUM,NA 150 mmol/L (136-145)
[2020-05-23] MEDS ORDERED: Zinc (Zinc Gluconate) 50 MG Tab PO SCH (08:00)
[2020-05-23] MEDS ORDERED: Azithromycin 250 MG Tab PO SCH (08:00)
[2020-05-23] MEDS ORDERED: Cefuroxime 250 MG Tab PO SCH (08:00)
[2020-05-23] MEDS: Enoxaparin 40 MG/0.4 ML Syringe SUBCUT SCH (08:49)
[2020-05-23] MEDS: Sertraline 50 MG Tab PO SCH (08:50)
[2020-05-23] MEDS: dexAMETHasone 2 MG, dexAMETHasone 4 MG PO SCH ×2 (08:51)
[2020-05-23] MEDS: amLODIPine 2.5 MG Tab PO SCH (08:55)
[2020-05-23] MEDS: Zinc Sulfate 220 MG (50mg elemental Zinc) Cap PO SCH (08:55)
[2020-05-23] MEDS: Ascorbic Acid 500 MG Tab PO SCH ×2 (09:00→20:23)
[2020-05-23] MEDS: Aspirin 81 MG Tab.EC PO SCH (09:00)
[2020-05-23] MEDS: Memantine 10 MG Tab PO SCH ×2 (09:00→20:24)
[2020-05-23] MEDS: Cholecalciferol (Vitamin D3) 25 MCG Tab PO SCH (09:00)
[2020-05-23] MEDS ORDERED: Dexamethasone 4 MG/ML SDV IVPUSH ONE (11:09)
[2020-05-23] MEDS: Sodium Chloride 0.45% 1,000 ML IV SCH (12:03)
[2020-05-23] MEDS: cefTRIAXone 1 GM Vial IVPUSH SCH (13:30)
[2020-05-23] MEDS: Azithromycin 500 MG in Sodium Chloride 0.9% 250 ML IV SCH (13:35)
--- NOTE | 2020-05-23 13:48 | PN ---
Progress Note for CLAYTON Blankenship LINDA Date: 05/23/2020 Room #: VM.210 SUBJECTIVE: This is hospital day #4 on an 84-year-old who is day #16 on a COVID- 19 infection with acute hypoxic respiratory failure, but refusing to keep on his oxygen. I walked in the room. He was in 84%. He had pulled his oxygen off. He was trying to get off his brief, trying to use the urinal, but it was unable. He did say he had to go pee. He denied that he was in pain. He is still coughing and having trouble with swallowing. He was unable to take his pills this morning, even crushed. He has had very little to eat. His reports that at home even before they moved into the assisted living, he was having trouble and refusing to eat. The patient otherwise did have to get IM Zyprexa yesterday to get his CT scan which was negative for PE. He also got a IM dose of Ativan around midnight. He has not been aggressive or refusing cares. He just gets agitated. OBJECTIVE: Vital Signs: His temperature is 97.2, pulse is 51 to 61, blood pressure is 151/74, respiratory rate 20, O2 of 95% on 4 L from previous testing, but again 84 on room air. Oxygen was applied and his saturations came up nicely. General: He is in no acute distress. Heart: Regular rate and rhythm. Lungs: Sounds are decreased with crackles bilaterally. Abdomen: Nondistended. Positive bowel sounds. Nontender. Genitourinary: He was not wet with urine. He had no sores on his genitals. Extremities: Warm and dry. No edema. He was moving them all. Mental Status: He is alert, but he really is not answering my questions, but does talk and asks for things on his own. Sometimes he is difficult to understand. LABORATORY DATA: Lab work today does show him to have a white count of 9.9, hemoglobin 13.1, platelets 204. INR up to 1.9. He has not been on any Coumadin. Sodium 150, potassium 3.6, chloride 115, bicarb 26, BUN 33, creatinine 1, glucose 97, calcium 8.9, phosphorus 3. Ferritin 901, that was down from 990 yesterday. Albumin 2.6. ASSESSMENT AND PLAN: 1. COVID-19 infection day #16. The patient can be moved out of isolation. He is not actively coughing. He is not wearing oxygen routinely, so being sedated down in his room, has not been good for his overall care, especially with his underlying dementia. 2. Dementia with delirium. His mini-mental is an 18 earlier this summer. We will continue supportive cares. 3. Difficulty with swallowing. We will get a speech therapy evaluation. 4. Pneumonia secondary infection to COVID-19. He will complete a course of antibiotics tomorrow. Due to difficulty taking pills, I will have to switch him back to IV Rocephin and Zithromax. 5. Weakness and deconditioning. He is working with PT, but his mental capacity is limiting his recovery. 6. Essential hypertension. Blood pressures are elevated. If he is unable to take home medications throughout the day, I will give him some IV Vasotec. He is normally on amlodipine. 7. Moderate malnutrition. We are encouraging a diet. 8. Coronary artery disease by history. No chest pain. 9. Chronic anemia. Hemoglobins have been stable. 10.Deep venous thrombosis prophylaxis, on Lovenox. The patient will continue on acute cares as we are now switching him back to IV antibiotics to complete a course tomorrow. I will give him his IV dexamethasone today. Hopefully, he can take the dose tomorrow. He is on his home medications for moods like Seroquel and Zoloft. He has not needed a lot of extra anxiety- type medications like lorazepam, mainly yesterday [address] was [address] CT scan. He will continue the vitamins as he is able to swallow. He will continue working with therapies. We will continue to encourage oxygen due to hypernatremia, which was new today. We will start him on half-normal saline 75 mL/h and encourage oral water intake. We will repeat lab work tomorrow and anticipate he could be stable medically for discharge to swing bed as soon as tomorr or Tuesday. I did update his today. I did fail to mention that we may need to transfer him to the long-term for further speech therapies, but she is aware it may take several weeks for him to fully recover. MKA: 05/23/2020 13:02:44 MODL: 05/23/2020 13:37:57 /[id number]
[2020-05-23] MEDS: QUEtiapine 25 MG Tab PO SCH (20:23)
[2020-05-23] MEDS: atorvaSTATin 40 MG Tab PO SCH (20:23)
[2020-05-23] MEDS: Donepezil 10 MG Tab PO SCH (20:23)
[2020-05-24] MEDS: Sodium Chloride 0.45% 1,000 ML IV SCH ×2 (01:38→15:52)
[2020-05-24] MEDS: LORazepam 2 MG/ML SDV IM PRN ×2 (01:40→20:34)
[2020-05-24] MEDS: Albuterol HFA 18 Gm Inhaler INH SCH ×6 (06:04→23:11)
[2020-05-24] MEDS: Omeprazole 20 MG Cap.CR PO SCH (06:41)
[2020-05-24 09:33] LABS: CHLORIDE,CL 114 mmol/L (98-107); SODIUM,NA 149 mmol/L (136-145)
[2020-05-24 09:36] LABS: ANION GAP 11.7 mmol/L (10-20)
[2020-05-24] MEDS: Enoxaparin 40 MG/0.4 ML Syringe SUBCUT SCH (11:10)
[2020-05-24] MEDS: cefTRIAXone 1 GM Vial IVPUSH SCH (11:21)
[2020-05-24] MEDS: Azithromycin 500 MG in Sodium Chloride 0.9% 250 ML IV SCH (11:24)
[2020-05-24] MEDS: dexAMETHasone 2 MG, dexAMETHasone 4 MG PO SCH ×4 (11:44→12:23)
[2020-05-24] MEDS: Aspirin 81 MG Tab.EC PO SCH (11:45)
[2020-05-24] MEDS: Cholecalciferol (Vitamin D3) 25 MCG Tab PO SCH (11:45)
[2020-05-24] MEDS: Zinc Sulfate 220 MG (50mg elemental Zinc) Cap PO SCH (11:45)
[2020-05-24] MEDS: Ascorbic Acid 500 MG Tab PO SCH ×2 (11:45→20:34)
[2020-05-24] MEDS: Memantine 10 MG Tab PO SCH ×2 (11:45→20:34)
[2020-05-24] MEDS: Sertraline 50 MG Tab PO SCH (11:46)
[2020-05-24] MEDS: amLODIPine 2.5 MG Tab PO SCH (12:23)
--- NOTE | 2020-05-24 12:31 | PN ---
Progress Note for CLAYTON Blankenship LINDA Date: 05/24/2020 Room #: VM.203 SUBJECTIVE: Hospital day #5 for an 84-year-old male patient who is day #17 on a COVID-19 infection with acute hypoxic respiratory failure. The patient is currently sleeping during assessment. The patient's oxygen saturations have been acceptable since he has been keeping his oxygen on. The patient continues to eat very little. The patient has not required any IM Zyprexa. The patient did have a recent CT scan of the chest, which was negative for PE. The patient has intermittent agitation, but has not been striking out at staff or refusing cares. OBJECTIVE: Vital Signs: Temperature 97.6, pulse 96, blood pressure 153/68, respiratory rate 22, oxygen saturation 93% on 4 L. Weight 136.6 pounds. General: Patient is not in any acute distress. Patient is resting comfortably. Cardiovascular: Regular rate and rhythm, no murmur. Respiratory: Lung sounds are decreased throughout with scattered crackles bibasilar. Abdomen: Soft. Nontender. Bowel sounds are active x4. Extremities: No edema. Neurological: The patient is resting comfortably. The patient is currently not agitated. LABORATORY STUDIES: CBC: White blood cell count 9.2, hemoglobin 12.1, hematocrit 35.8, platelets 195,000. PT 23.3, INR 2.2. CMP: Sodium 149, potassium 3.7, chloride 114, CO2 of 27, anion gap 11.7, BUN 29, creatinine 1.0, GFR greater than 60, glucose 89, calcium 8.9, AST 76, ALT 53, alkaline phosphatase 84, total protein 6.9, albumin 2.6. ASSESSMENT: 1. COVID-19 infection, day #17. The patient was moved out of isolation yesterday. The patient does not have an active cough. The patient is currently wearing his oxygen at 4 L. 2. Dementia with delirium. The patient is currently cooperative. We will continue with supportive cares. 3. Difficulty with swallowing. Speech consultation. 4. Pneumonia secondary to COVID-19 infection. We will continue on antibiotics as ordered. The patient does have difficulty swallowing pills, therefore, it is medically necessary to give antibiotics IV. 5. Weakness and deconditioning. The patient is working with PT, but his mental capacity is limiting his recovery. 6. Essential hypertension. Blood pressures continued to be elevated. If patient is unable to take home medications, may consider IV Vasotec. 7. Moderate malnutrition. Continue to encourage a diet. 8. Coronary artery disease by history. No chest pain. 9. Chronic anemia. Hemoglobins have been stable. 10.Deep venous thrombosis prophylaxis, on Lovenox. PLAN: The patient will continue on acute cares for now since he is requiring oxygen and IV antibiotics with poor p.o. intake. Continue with oxygen for adequate saturations. We will continue to try and encourage diet. The patient to also continue on IV fluids due to secondary to poor p.o. intake. We will recheck laboratory work tomorrow. If patient does happen to improve, we will consider swing bed tomorrow. Nursing staff will update family. TB: 05/24/2020 11:05:43 MODL: 05/24/2020 12:21:29 /[id number]
[2020-05-24] MEDS ORDERED: Enalaprilat 1.25 MG/ML SDV IVPUSH ONE (16:36)
[2020-05-24] MEDS: QUEtiapine 25 MG Tab PO SCH (20:33)
[2020-05-24] MEDS: atorvaSTATin 40 MG Tab PO SCH (20:34)
[2020-05-24] MEDS: Donepezil 10 MG Tab PO SCH (20:34)
[2020-05-25] MEDS: Albuterol HFA 18 Gm Inhaler INH SCH ×7 (02:30→23:39)
[2020-05-25] MEDS: Sodium Chloride 0.45% 1,000 ML IV SCH ×2 (05:21→16:58)
[2020-05-25] MEDS: Enoxaparin 40 MG/0.4 ML Syringe SUBCUT SCH (07:57)
[2020-05-25] MEDS: amLODIPine 2.5 MG Tab PO SCH (07:57)
[2020-05-25] MEDS: dexAMETHasone 2 MG, dexAMETHasone 4 MG PO SCH ×2 (07:59)
[2020-05-25] MEDS: Sertraline 50 MG Tab PO SCH (08:04)
[2020-05-25] MEDS: Ascorbic Acid 500 MG Tab PO SCH ×2 (08:05→23:48)
[2020-05-25] MEDS: Cholecalciferol (Vitamin D3) 25 MCG Tab PO SCH (08:05)
[2020-05-25] MEDS: Memantine 10 MG Tab PO SCH ×2 (08:05→23:42)
[2020-05-25] MEDS: Zinc Sulfate 220 MG (50mg elemental Zinc) Cap PO SCH (08:05)
[2020-05-25] MEDS: Aspirin 81 MG Tab.EC PO SCH (08:05)
[2020-05-25 08:37] LABS: CHLORIDE,CL 109 mmol/L (98-107); SODIUM,NA 144 mmol/L (136-145)
[2020-05-25 08:48] LABS: ANION GAP 13.2 mmol/L (10-20)
[2020-05-25] MEDS ORDERED: Potassium Chloride Riders 20 MEQ in Premix Bag 1 BAG IV SCH (09:35)
[2020-05-25] MEDS ORDERED: Enalaprilat 1.25 MG/ML SDV IVPUSH ONE (09:45)
--- NOTE | 2020-05-25 11:25 | PN ---
Progress Note for CLAYTON Blankenship LINDA Date: 05/25/2020 Room #: VM.203 SUBJECTIVE: Hospital day #6 for an 84-year-old male patient who is day #18 post COVID infection with acute hypoxic respiratory failure. The patient is able to maintain his oxygen saturations when he is asleep. While the patient is awake, he does pull off his oxygen. The patient has not had any pain. The patient still has a productive cough producing a brown-appearing purulent sputum. The patient continues to cough when attempting to take his pills. The patient continues not to eat. The patient has not required any antipsychotic. The patient is incontinent of urine and stool. The patient has intermittent behaviors trying to get out of bed and pulling at IV tubing. No new focal neurological deficits. The patient has not complained of any chest pain or palpitations. The patient does not appear to be in any shortness of breath. The patient continued on IV fluids. OBJECTIVE: Vital Signs: Temperature 99.9, pulse 55, blood pressure 148/68, respiratory rate 20, oxygen saturation 90% on 3 L. Weight 135.3 pounds. General: The patient does not appear to be in any acute distress. Respiratory: Scattered upper lobe rhonchi with scant bibasilar crackles. Cardiac: Regular rate and rhythm, no murmur. Abdomen: Soft, nontender. Bowel sounds are hypoactive x4. Extremities: No edema. Neurological: The patient is alert, but very confused. The patient has intermittent garbled speech. LABORATORY STUDIES: CBC: White blood cell count 10.1, hemoglobin 13.3, hematocrit 38.8, and platelets 226, 000, 84% neutrophils. CMP: Sodium 144, potassium 3.2, chloride 109, CO2 of 25, anion gap 13.6, BUN 23, creatinine 0.9, GFR greater than 60, glucose 71, calcium 8.9, bilirubin 0.7, AST 76, ALT 58, alkaline phosphatase 85, total protein 6.8, albumin 2.6. ASSESSMENT: 1. COVID-19 infection, day #18. 2. Dementia with delirium. 3. Difficulty with swallowing. 4. Pneumonia secondary to COVID-19 infection. 5. Weakness and deconditioning. 6. Essential hypertension. 7. Moderate malnutrition. 8. Coronary artery disease by history. 9. Chronic anemia. 10.Deep vein thrombosis prophylaxis, on Lovenox. PLAN: Hospital day #6 for an 84-year-old male patient admitted with the above diagnoses. We will replace the patient's potassium IV today. Continue to encourage p.o. intake, but with aspiration precautions. Continue all other medications the same. The patient will stay on acute cares given his weakness and deconditioning, swallowing trouble, and poor p.o. intake. The patient is not a candidate to be transferred to a higher level of care. Patient is not stable to be admitted to the long term. Therefore, we will continue with current treatments. Anticipate swing bed tomorrow. TB: 05/25/2020 10:48:13 MODL: 05/25/2020 11:20:07 /[id number]
[2020-05-25] MEDS: LORazepam 2 MG/ML SDV IM PRN (15:39)
[2020-05-25] MEDS: QUEtiapine 25 MG Tab PO SCH (23:41)
[2020-05-25] MEDS: Donepezil 10 MG Tab PO SCH (23:42)
[2020-05-25] MEDS: atorvaSTATin 40 MG Tab PO SCH (23:48)
[2020-05-26] MEDS: Albuterol HFA 18 Gm Inhaler INH SCH ×6 (03:14→22:46)
[2020-05-26] MEDS: Sodium Chloride 0.45% 1,000 ML IV SCH (05:01)
[2020-05-26] MEDS: Omeprazole 20 MG Cap.CR PO SCH (06:16)
[2020-05-26] MEDS: Enoxaparin 40 MG/0.4 ML Syringe SUBCUT SCH (07:17)
[2020-05-26 07:24] LABS: ANION GAP 14.5 mmol/L (10-20); CHLORIDE,CL 107 mmol/L (98-107); SODIUM,NA 140 mmol/L (136-145)
[2020-05-26] MEDS ORDERED: Potassium Chloride 20 MEQ Packet PO SCH (09:00)
[2020-05-26] MEDS: Vancomycin 125 MG Cap PO SCH ×2 (09:54→13:56)
[2020-05-26] MEDS: Zinc Sulfate 220 MG (50mg elemental Zinc) Cap PO SCH (10:00)
[2020-05-26] MEDS: Memantine 10 MG Tab PO SCH (10:00)
[2020-05-26] MEDS: Cholecalciferol (Vitamin D3) 25 MCG Tab PO SCH (10:00)
[2020-05-26] MEDS: Aspirin 81 MG Tab.EC PO SCH (10:01)
[2020-05-26] MEDS: dexAMETHasone 2 MG, dexAMETHasone 4 MG PO SCH ×2 (10:11)
[2020-05-26] MEDS: amLODIPine 2.5 MG Tab PO SCH (10:13)
[2020-05-26] MEDS ORDERED: metroNIDAZOLE/Normal Saline 500 MG in Premix Bag 1 BAG IV SCH (11:00)
[2020-05-26] MEDS: Sertraline 50 MG Tab PO SCH (11:11)
[2020-05-26] MEDS: Ascorbic Acid 500 MG Tab PO SCH (11:11)
[2020-05-26] MEDS ORDERED: Vancomycin 500 MG SDV SCH (11:15)
[2020-05-26] MEDS ORDERED: Lidocaine 2% Viscous Solution 15 ML Cup PO PRN (12:18)
[2020-05-26] MEDS ORDERED: Ondansetron 4 MG/2 ML SDV IVPUSH PRN (12:18)
[2020-05-26] MEDS ORDERED: Atropine 1% Ophth Soln 5 ML BOTTLE SL PRN (12:18)
[2020-05-26] MEDS ORDERED: Acetaminophen 650 MG Supp RECTAL PRN (12:30)
--- NOTE | 2020-05-26 13:23 | PN ---
Progress Note for CLAYTON Blankenship LINDA Date: 05/26/2020 Room #: VM.203 SUBJECTIVE: This is hospital day #7 on an 84-year-old admitted after a COVID-19 infection with acute hypoxic respiratory failure and pneumonia. He was treated with IV antibiotics. He has completed them. He is off quarantine since he is now day #19 of COVID-19. He did get dexamethasone. He has underlying dementia and poor oral intake even before this admission. He has only eaten some snacks, has very little intake, and is aspirating on medications. Speech Therapy has not been able to see him. He developed diarrhea over the weekend and the concern is for Clostridium difficile. His white count has been going up. He is afebrile. He is pretty sedated this morning despite getting no medications to sedate him overnight. He did get 1 dose of Ativan yesterday afternoon for agitation. His oxygenations were in the 90s on 3 L but then around 10 a.m., he had a spell where he needed a non-rebreather at 10 L. Family was contacted and were expressing wishes for comfort care. I advised his to come up, which she did. I spoke with her and niece, power of admitted attorneys, Liz. The concern was about needing antibiotics for comfort, which the nurse has been informed. I do not feel he needs antibiotics for comfort. He does not appear to be in any pain. We have canceled the planned chest x-ray that was ordered. OBJECTIVE: Vital Signs: His weight is 62.3 kg, temperature 98.2, pulse 80, blood pressure 112/63, respiratory rate 31, and O2 of 91 on 10 L. General: He is in no acute distress. He is resting comfortably. I saw him twice today this morning, he was more easily to arouse, and he was mumbling to try to answer some questions. Currently, he is less alert but does wake up to painful stimuli. His is at the bedside. Heart: Regular rate and rhythm. S1, S2 without murmur. Lungs: Lung sounds are decreased with rhonchi throughout. Abdomen: Has positive bowel sounds. Soft, nontender, and nondistended. Extremities: Warm and dry in the proximal legs. No edema but his hands are cool. There is no mottling. No cyanosis. LABORATORY DATA: White count up to 12.8, hemoglobin 12.9, and platelets 210. Sodium 140, potassium 3.5, chloride 107, bicarbonate 22, BUN 19, creatinine 0.8, magnesium 1.6, AST 59, ALT 50, bilirubin normal, alkaline phosphatase 86, and albumin 2.6. ASSESSMENT: 1. Acute hypoxic respiratory failure with recent pneumonia and COVID-19, now with probable aspiration. Chest x-ray had been ordered but not completed when family decided for comfort cares. Therefore, we will discontinue all laboratories and x-ray monitoring. No further antibiotics will be ordered. We will continue with supportive oxygen. 2. COVID-19, recovered. 3. Dementia with delirium. We will continue supportive cares. We will continue with Seroquel at bedtime. 4. Trouble swallowing, likely related to his underlying illness. We have not been able to do a head CT due to his poor cooperation with scans. At this point, family would not wish for any feeding tubes and elect for comfort care. 5. Weakness and deconditioning. I have discontinued physical therapy as the goals of care are comfort. 6. Essential hypertension. He did require some Vasotec over the weekend. We will monitor vitals p.r.n. I have discontinued his amlodipine. 7. Moderate malnutrition. He is allowed to eat whatever diet he wishes. 8. Coronary artery disease. He has had no chest pain. 9. Chronic anemia. Hemoglobin has been stable at 12.9 today. 10.Deep venous thrombosis prophylaxis. I went ahead and discontinued his Lovenox today due to goals of care being comfort. PLAN: After discussing with the patient and power of admitted attorneys, niece, Liz , decision was made to place the patient on comfort cares. Morphine was started as a p.r.n., but we will schedule if indicated. He has IV Ativan available, atropine for secretions, and IV nausea medications. We will change vitals to as needed. We will stop his IV fluids, which I in fact had already decided to stop this morning. I do not believe him to be in any fluid retention heart failure as a cause of his respiratory distress as it did happen after he was trying to take pills and some liquids in, and I suspect he has been just aspirating. Discussed that if he did recover, he would have quite a prolonged course, which would be limited by his cognitive status. Therefore, his sieve grader tender was called, and we will pursue comfort measures. Considerations for swing bed, end of life potentially over the next day may occur. Right now, we will continue on acute cares. He is extended beyond the 96-hour critical access window due to the COVID-19 and failure to improve and not being a candidate or desiring to transfer to a higher level of care due to his dementia. We have continued to treat him here and take it day by day. MKA: 05/26/2020 12:33:16 MODL: 05/26/2020 13:14:35 /[id number]
[2020-05-26] MEDS: LORazepam 2 MG/ML SDV IV PRN (16:23)
[2020-05-26] MEDS: Morphine 2 MG/ML SYRINGE IVPUSH PRN (17:32)
[2020-05-26] MEDS ORDERED: Sertraline 50 MG Tab PO SCH (20:00)
[2020-05-27] MEDS: Albuterol HFA 18 Gm Inhaler INH SCH ×3 (04:16→12:12)
[2020-05-27] MEDS: Morphine 2 MG/ML SYRINGE IVPUSH PRN ×2 (05:15→09:37)
[2020-05-27] MEDS ORDERED: Sertraline 50 MG Tab PO SCH (08:00)
[2020-05-27] MEDS: LORazepam 2 MG/ML SDV IV PRN (09:33)
--- NOTE | 2020-05-27 20:23 | DISCH ---
PRIMARY DISCHARGE DIAGNOSES: 1. A coronavirus disease 19 infection. 2. Diarrhea with negative Clostridium difficile testing. 3. Pneumonia secondary to infection from coronavirus disease 19. 4. Acute hypoxic respiratory failure due to coronavirus disease 19 and pneumonia with likely aspiration pneumonia. 5. Dementia with delirium and very poor oral intake. 6. Trouble swallowing, probably related to underlying medical conditions. No CT was performed as the patient did not cooperate for scanning and decision was made to place him on comfort care. 7. Weakness and deconditioning. 8. Essential hypertension. Elevated blood pressures due to agitation and not always able to take his home medications. 9. Moderate malnutrition. He had poor oral intake even before getting sick with coronavirus disease per his . 10.Coronary artery disease. He had no chest pain during his stay. 11.Chronic anemia. 12.Deep venous thrombosis prophylaxis. He was on Lovenox until he went on comfort cares. REASON FOR ADMISSION: On the date of admission, this 84-year-old with underlying dementia, mini-mental 18/30, who had previously been at the [facility], but was living at assisted living with his and was independent of ADLs, became ill with COVID-19. He is now 20 days past his diagnosis. He was requiring up to 4 L of oxygen with low saturations and poor oral intake. Therefore, he was sent over to [facility] and admitted for further cares. He was treated with dexamethasone and antibiotics. His condition overall failed to improve, and on the morning of comfort care decision, he had an episode of aspiration while trying to take his pills and his sats dropped. He was requiring 15 L of non-rebreather mask. I contacted his , notified her of the situation, and she came in to see him, and a niece, Liz, who is the POA, who is a retired nurse. Discussion was had between all of us and decision was made for comfort cares. had concerns that antibiotics might be providing him some comfort. However, I felt that they did not and they would only prolong his illness, especially now that his C diff testing was negative. The patient was initiated on morphine for pain and respiratory distress and has received 3 doses since yesterday. He has also received a couple of doses of Ativan. DISCHARGE PLANS AND INSTRUCTIONS: The patient is going over to swing bed for end-of-life cares on scheduled morphine. Other medications are also available for comfort. All oral medications were discontinued. PHYSICAL EXAMINATION: Discharge Vitals: Include a temperature of 97.6, pulse 73, blood pressure 108/66, respiratory rate 20, and O2 of 84% on 10 L. However, the patient was not very good about keeping his oxygen on. Weight is 59 kg. General: He is in no acute distress. He is resting comfortably. I am not able to get him to respond even to painful stimuli this morning. Heart: Regular rate and rhythm without murmur. Lungs: Sounds were decreased with very poor respiratory effort and shallow inspirations. Abdomen: Quite scaphoid, but positive bowel sounds. Nontender. : He had no scrotal swelling. Extremities: Cool in the hands and feet, but no mottling appreciated. Mental Status: He is completely disoriented. Not alert enough to answer any questions. Going over to swing bed for end-of-life cares. Hospital stay did extend beyond 96 hrs due to COVID 19 and his illness and goals of care therefore he did not transfer to a tertiary hospital. MKA: 05/27/2020 12:52:09 MODL: 05/27/2020 20:15:27 /[id number] FLORY
== END 2020-05-27 14:11 | disposition swing bed (61) | DRG 177 ==
LOC: VM.ED 09:52 → VM.MS 11:31
PROVIDERS: ADMIT Internal Medicine; ATTEND Internal Medicine
PROC: XW033F5 Introduction of Other New Technology Therapeutic Substance into Peripheral Vein, Percutaneous Approach, New Technology Group 5 (ICD-10-PCS; principal; 2020-05-20)
DX: U07.1 COVID-19 (principal); J18.9 Pneumonia, unspecified organism; J12.89 Other viral pneumonia; R09.02 Hypoxemia; F02.80 Dementia in other diseases classified elsewhere, unspecified severity, without behavioral disturbance, psychotic disturbance, mood disturbance, and anxiety; J96.01 Acute respiratory failure with hypoxia; J69.0 Pneumonitis due to inhalation of food and vomit; I25.2 Old myocardial infarction; E78.00 Pure hypercholesterolemia, unspecified; G47.30 Sleep apnea, unspecified; E44.0 Moderate protein-calorie malnutrition; M19.90 Unspecified osteoarthritis, unspecified site; F02.81 Dementia in other diseases classified elsewhere, unspecified severity, with behavioral disturbance; R19.7 Diarrhea, unspecified; Z79.82 Long term (current) use of aspirin; Z79.899 Other long term (current) drug therapy; R53.1 Weakness; Z51.5 Encounter for palliative care; I10 Essential (primary) hypertension; Z68.23 Body mass index [BMI] 23.0-23.9, adult; I25.10 Atherosclerotic heart disease of native coronary artery without angina pectoris; D63.8 Anemia in other chronic diseases classified elsewhere; Z88.1 Allergy status to other antibiotic agents; F32.9 Major depressive disorder, single episode, unspecified; K21.9 Gastro-esophageal reflux disease without esophagitis; Z86.010 Personal history of colon polyps; G30.9 Alzheimer's disease, unspecified; Z85.828 Personal history of other malignant neoplasm of skin; E78.5 Hyperlipidemia, unspecified; G47.33 Obstructive sleep apnea (adult) (pediatric); Z95.1 Presence of aortocoronary bypass graft
CPT/HCPCS: 36415; 71045; 71275; 80053; 80069; 81001; 82728; 83605; 83735; 83880; 84484; 85025; 85610; 86140; 87040; 87070; 87205; 87493; 87804; 87804-59; 93005; 94640; 94760; 97161-GP; 97530-GP; 99284; 99285-25; A9270-GY; J0456; J0696; J1100; J1650; J2060; J2270; J3480; J3490; J7030; J7050; J7120; J7620-GY; J8540

== ENCOUNTER 2020-05-27 09:59 | Inpatient (IN) | payer MEDICARE, BC ==
[2020-05-27] MEDS ORDERED: Acetaminophen 650 MG Supp RECTAL PRN (12:36)
[2020-05-27] MEDS ORDERED: Acetaminophen 325 MG Tab PO PRN (12:36)
[2020-05-27] MEDS ORDERED: Lidocaine 2% Viscous Solution 15 ML Cup PO PRN (12:36)
[2020-05-27] MEDS ORDERED: Flumazenil 0.1 MG/ML 5 ML MDV IVPUSH PRN (12:36)
[2020-05-27] MEDS ORDERED: Morphine 2 MG/ML SYRINGE IVPUSH PRN (12:36)
[2020-05-27] MEDS ORDERED: Atropine 1% Ophth Soln 5 ML BOTTLE SL PRN (12:36)
[2020-05-27] MEDS ORDERED: Ondansetron 4 MG/2 ML SDV IVPUSH PRN (12:36)
[2020-05-27] MEDS ORDERED: LORazepam 2 MG/ML SDV IV PRN (12:36)
[2020-05-27] MEDS ORDERED: Morphine 2 MG/ML SYRINGE IVPUSH SCH ×2 (12:45→20:00)
[2020-05-27] MEDS ORDERED: LORazepam 2 MG/ML SDV IM PRN (15:24)
[2020-05-27] MEDS ORDERED: Morphine 2 MG/ML SYRINGE IM PRN (15:24)
[2020-05-27] MEDS ORDERED: Flumazenil 0.1 MG/ML 5 ML MDV PRN (15:25)
[2020-05-27] MEDS: Morphine 2 MG/ML SYRINGE IM SCH (19:50)
[2020-05-28] MEDS: Morphine 2 MG/ML SYRINGE IM SCH (07:51)
[2020-05-28] MEDS ORDERED: Haloperidol Lactate 5 MG/ML SDV IM ONE (07:54)
[2020-05-28] MEDS ORDERED: Flumazenil 0.1 MG/ML 5 ML MDV IV PRN (08:53)
[2020-05-28] MEDS: Morphine 4 MG/ML Syringe IM SCH ×2 (09:32→20:33)
[2020-05-28] MEDS: Morphine 4 MG/ML Syringe IM PRN ×2 (10:14→16:46)
[2020-05-28] MEDS: LORazepam 2 MG/ML SDV IM PRN (10:15)
--- NOTE | 2020-05-28 15:37 | PN ---
Progress Note for CLAYTON Blankenship LINDA Date: 05/28/2020 Room #: VM.203 SUBJECTIVE: An 84-year-old seen today on swing bed for end-of-life cares. The patient was not requiring a lot of extra medications overnight. No additional morphine for pain until this morning, but he was quite breathless, pulled out his IV again. He otherwise is pulling off his oxygen. Staff have been educated that if he pulls it off, we do not need to force him to wear it. He had incontinence of urine. They were unable to place a [place] and he did have a little blood. Otherwise, he has had 0 intake. He did try to open his eyes with painful stimuli but was mumbling and could not communicate with any meaningful speech. No vitals collected today. Yesterday, he was 90% on 10 L, not tachycardic, heart rate 73, temperature 98.7, blood pressure 131/48. REVIEW OF SYSTEMS: Unobtainable due to patient condition. PHYSICAL EXAMINATION: Heart: Regular rate and rhythm. Heart tones are distant. Lungs: Sounds decreased with poor respiratory effort. Abdomen: Nontender. He had 2 bowel movements only yesterday, 2 so far this morning. Extremities: Warm and dry. No edema. His feet and hands are cool. ASSESSMENT AND PLAN: 1. Acute hypoxic respiratory failure secondary to COVID-19 infection diagnosed in April. He is over 21 days out from his diagnosis. 2. Diarrhea, seems to be resolving, possibly due to antibiotics. His C. diff was negative. 3. COVID-19 infection. 4. Delirium related to dementia. 5. End-of-life cares, palliative cares. 6. Pneumonia secondary to COVID-19. 7. Dysphagia related to underlying medical problems. Family did not want to pursue any feeding tubes. 8. Weakness and deconditioning. 9. Essential hypertension. He is now off medications. 10.Moderate malnutrition. 11.Coronary artery disease. 12.Chronic anemia. PLAN: At this point, the patient is to continue comfort cares. I have increased his morphine from the 2 mg q.12 hours to 4 mg q.12 hours scheduled with also p.r.n. doses available. I ordered onetime dose of IM Haldol for agitation this morning. He also has IV lorazepam available, which was also increased up to 1 mg. We will continue to give these IM as he did pull out his subcu lines. We will continue supportive cares. Joint Creaser is involved. Since he is expecting to pass away in the next several days, his should be allowed to visit. It sounds like she has also recovered from COVID from their assisted living facility. MKA: 05/28/2020 14:54:56 MODL: 05/28/2020 15:27:34 /[id number] MTDD
[2020-05-29] MEDS: Morphine 4 MG/ML Syringe IM PRN ×3 (02:38→23:48)
[2020-05-29] MEDS: LORazepam 2 MG/ML SDV IM PRN ×2 (07:24→13:47)
[2020-05-29] MEDS: Morphine 4 MG/ML Syringe IM SCH ×2 (07:25→19:42)
[2020-05-29] MEDS ORDERED: Ondansetron 4 MG/2 ML SDV IM PRN (13:13)
[2020-05-30] MEDS: Morphine 4 MG/ML Syringe IM PRN ×4 (02:42→22:35)
[2020-05-30] MEDS: Morphine 4 MG/ML Syringe IM SCH ×2 (08:45→19:33)
[2020-05-30] MEDS: LORazepam 2 MG/ML SDV IM PRN ×2 (08:56→14:57)
--- NOTE | 2020-05-30 14:37 | PCM.SN.2 ---
- Free Text/Narrative Note: Discussed with nursing they feel that he is resting comfortably and he has the medications he needs ordered to maintain his comfort. Oxygen order has been discontinued since he has been pulling it off regularly and the goal of care is comfort.
[2020-05-31] MEDS: Morphine 4 MG/ML Syringe IM PRN ×4 (01:52→22:38)
[2020-05-31] MEDS: Morphine 4 MG/ML Syringe IM SCH ×2 (07:34→19:04)
[2020-05-31] MEDS: LORazepam 2 MG/ML SDV IM PRN ×3 (07:35→19:05)
[2020-06-01] MEDS: Morphine 4 MG/ML Syringe IM PRN ×4 (02:44→17:27)
[2020-06-01] MEDS: LORazepam 2 MG/ML SDV IM PRN ×4 (02:55→22:51)
[2020-06-01] MEDS: Morphine 4 MG/ML Syringe IM SCH ×2 (07:47→20:38)
--- NOTE | 2020-06-04 17:01 | DISCH ---
DATE OF : 06/02/2020. PRIMARY CAUSE OF : 1. Malnutrition due to poor oral intake from dementia and a recent COVID-19 infection. 2. COVID-19 infection, recovered, but likely a bout of aspiration pneumonia and hypoxia. Family declined further treatment and wanted to pursue comfort cares. 3. Secondary bacterial infection with an aspiration pneumonia. He did receive some antibiotics, but they were discontinued due to severe diarrhea which did honing machine try out setter to be negative for C diff. 4. Acute hypoxic respiratory failure secondary to a COVID and aspiration pneumonia. The patient was refusing oxygen, so this was discontinued for his comfort. 5. Dementia with delirium. 6. Weakness and deconditioning and some trouble swallowing all related to his general decline in health after the COVID-19 infection. 7. Essential hypertension. 8. Moderate malnutrition with poor oral intake even before he got sick per his . 9. Coronary artery disease history. 10.Chronic anemia. 11.DVT prophylaxis. He was on Lovenox until he went on comfort cares. REASON FOR ADMISSION: On the date of admission, this 84-year-old male with underlying dementia, mini-mental 18/30, had previously been at the [facility], but then was able to move into assisted living with his , became ill with COVID-19 in April. Unfortunately, his condition never completely improved. HOSPITAL COURSE: He was requiring up to 4 L of oxygen, so was admitted to [facility] for further care. The patient was treated with antibiotics for concern for a secondary aspiration pneumonia and dexamethasone, and his condition failed to improve. In fact, on the morning of comfort cares, he needed up to 15 L non- rebreather. He was having diarrhea. We were awaiting the C diff test, but were planning to start antibiotics. I contacted his who did come visit him; his niece, Liz, who was the POA; and decision was made to place him on comfort cares. He was on scheduled morphine and p.r.n. Ativan, p.r.n. morphine. He had medications for secretions, and throughout his comfort care stay, he remained quite comfortable. He did once pull out his IV and was agitated, so got some Haldol. Otherwise, his symptoms were well managed with the current treatments. I did not see the patient on the date of the as he during the night. MKA: 06/03/2020 14:27:03 MODL: 06/03/2020 19:27:49 /[id number]
== END 2020-06-02 00:50 | disposition expired | DRG 951 ==
LOC: VM.MS 14:11
PROVIDERS: ADMIT Internal Medicine; ATTEND Internal Medicine
DX: Z51.5 Encounter for palliative care (principal); J69.0 Pneumonitis due to inhalation of food and vomit; J96.01 Acute respiratory failure with hypoxia; J15.9 Unspecified bacterial pneumonia; E44.0 Moderate protein-calorie malnutrition; Z68.1 Body mass index [BMI] 19.9 or less, adult; I10 Essential (primary) hypertension; I25.10 Atherosclerotic heart disease of native coronary artery without angina pectoris; D64.9 Anemia, unspecified; R45.1 Restlessness and agitation; N52.9 Male erectile dysfunction, unspecified; G30.9 Alzheimer's disease, unspecified; F02.80 Dementia in other diseases classified elsewhere, unspecified severity, without behavioral disturbance, psychotic disturbance, mood disturbance, and anxiety; K21.9 Gastro-esophageal reflux disease without esophagitis; R32 Unspecified urinary incontinence; F01.50 Vascular dementia, unspecified severity, without behavioral disturbance, psychotic disturbance, mood disturbance, and anxiety; E78.5 Hyperlipidemia, unspecified; F32.9 Major depressive disorder, single episode, unspecified; G47.30 Sleep apnea, unspecified; R19.7 Diarrhea, unspecified; Z86.19 Personal history of other infectious and parasitic diseases; Z95.1 Presence of aortocoronary bypass graft; Z88.1 Allergy status to other antibiotic agents; Z86.010 Personal history of colon polyps; Z85.828 Personal history of other malignant neoplasm of skin; Z79.82 Long term (current) use of aspirin; Z79.899 Other long term (current) drug therapy; Z98.890 Other specified postprocedural states; Z80.8 Family history of malignant neoplasm of other organs or systems; Z82.0 Family history of epilepsy and other diseases of the nervous system
CPT/HCPCS: 94760; J1630; J2060; J2270